=== PATIENT | female | born 1985 | race Caucasian/White ===

== ENCOUNTER 2017-02-07 17:41 | Emergency (ER) | payer BC, OTHER ==
[2017-02-07] MEDS ORDERED: Ondansetron 4 MG/2 ML SDV IVPUSH ONE (17:52)
[2017-02-07] MEDS: Sodium Chloride 0.9% 10 ML Syringe FLUSH PRN ×2 (18:26→18:27)
--- NOTE | 2017-02-07 18:45 | EDM.PDOC ---
ED HPI GENERAL MEDICAL PROBLEM - General Chief Complaint: Abdominal Pain Stated Complaint: ABD PAIN Time Seen by Provider: 02/07/17 17:59 Source of Information: Reports: Patient, Family - History of Present Illness INITIAL COMMENTS - FREE TEXT/NARRATIVE: 31 year old w f , morbid obese, came to the ed a few hours after she ate turkey dinner. No trauma, s/p tubal ligation, S/P cholecystectomy. Pt was nauseated, did not vomit, no F/C, stating her pain is generalized. BP 166/102 pulse 67 temp 36.6 RR 20 Pulse ox 98% on RA. Onset: Today, Sudden Onset Date: 02/07/17 Onset Time: 17:00 Duration: Minutes: Location: Reports: Abdomen, Generalized Quality: Reports: Ache, Dull, Pressure, Stabbing, Throbbing Severity: Moderate Improves with: Reports: None Worsens with: Reports: None Context: Reports: Other (overeating) Associated Symptoms: Reports: Nausea/Vomiting (nausea) Abdominal Pain Score (Numeric/FACES): 10 - Related Data Allergies Allergy/AdvReac Type Severity Reaction Status Date / Time codeine Allergy Mild unknown Verified 02/07/17 18:09 Home Meds: Home Meds NK [No Known Home Meds] 02/07/17 [History] Past Medical History - Past Surgical History GI Surgical History: Reports: Cholecystectomy Female Surgical History: Reports: Tubal Ligation Social & Family History - Tobacco Use Smoking Status *Q: Former Smoker Years of Tobacco use: 5 Used Tobacco, but Quit: Yes Month Tobacco Last Used: quit 3 years ago - Caffeine Use Caffeine Use: Reports: Coffee - Recreational Drug Use Recreational Drug Use: No ED ROS GENERAL - Review of Systems Review Of Systems: See Below Constitutional: Reports: No Symptoms HEENT: Reports: No Symptoms Respiratory: Reports: No Symptoms Cardiovascular: Reports: No Symptoms Endocrine: Reports: No Symptoms GI/Abdominal: Reports: Abdominal Pain : Reports: No Symptoms, Other (s/p tubal ligation) Musculoskeletal: Reports: No Symptoms Skin: Reports: No Symptoms Neurological: Reports: No Symptoms Psychiatric: Reports: No Symptoms Hematologic/Lymphatic: Reports: No Symptoms Immunologic: Reports: No Symptoms ED EXAM, GI/ABD - Physical Exam Exam: See Below Exam Limited By: No Limitations General Appearance: Alert, WD/WN, No Apparent Distress, Moderate Distress, Obese (morbid) Eyes: Bilateral: Normal Appearance Ears: Normal External Exam Nose: Normal Inspection, Normal Mucosa Throat/Mouth: Normal Inspection, Normal Lips Head: Atraumatic, Normocephalic Neck: Normal Inspection, Supple, Non-Tender, Full Range of Motion Respiratory/Chest: No Respiratory Distress, Lungs Clear, Normal Breath Sounds Cardiovascular: Normal Peripheral Pulses, Regular Rate, Rhythm GI/Abdominal Exam: Normal Bowel Sounds, Guarding, Tender (Female) Exam: Deferred Rectal (Female) Exam: Deferred Back Exam: Normal Inspection, Full Range of Motion Extremities: Normal Inspection, Normal Range of Motion, Non-Tender Neurological: Alert, Oriented, CN II-XII Intact, Normal Cognition Psychiatric: Normal Affect, Normal Mood Skin Exam: Warm, Dry, Intact, Normal Color Lymphatic: No Adenopathy Course - Vital Signs Text/Narrative:: 31 year old w f , morbid obese, came to the ed a few hours after she ate turkey dinner. No trauma, s/p tubal ligation, S/P cholecystectomy. Pt was nauseated, did not vomit, no F/C, stating her pain is generalized. BP 166/102 pulse 67 temp 36.6 RR 20 Pulse ox 98% on RA. PE: Morbid obese W F with gen abd. pain, no guarding , no rebound 4 hours after eating a turkey dinner. Labs: CBC Nl. Pls 440 Na 133 K 3.5 GFR > 60 Imaging: ABD flat upright: Nonspecific CT abd/pelvis: NAD as per RAD Impression: S/P tubal ligation, generalized abd. pain, , cause not determined, fatty liver Tx: refused, stating she will take tylenol at home Plan: D/C with instruction Last Recorded V/S: Last Vital Signs Temp 36.5 C 02/07/17 17:59 Pulse 75 02/07/17 17:59 Resp 20 02/07/17 17:59 BP 166/102 H 02/07/17 17:59 Pulse Ox 100 02/07/17 17:59 - Orders/Labs/Meds Orders: Active Orders 24 hr Category Date Time Status Abdomen 2V AP Flat Upright [CR] Stat Exams 02/07/17 17:47 Taken Abdomen Pelvis w Cont [CT] Stat Exams 02/07/17 18:42 Ordered Diatrizoate Elizabeth/Diatrizoate Na [Gastrografin 37%] Med 02/07/17 19:15 Active 30 ml PO . DIRECTED Sodium Chloride 0.9% [Saline Flush] Med 02/07/17 17:47 Active 10 ml FLUSH ASDIRECTED PRN Peripheral IV Insertion Adult [OM.PC] Routine Oth 02/07/17 17:47 Ordered Medication Orders Diatrizoate Meglum/Diatrizoate Sod (Gastrografin 37%) 30 ml PO . DIRECTED [facility] Last Admin: 02/07/17 20:20 Dose: 30 ml Sodium Chloride (Saline Flush) 10 ml FLUSH ASDIRECTED PRN PRN Reason: Keep Vein Open Last Admin: 02/07/17 18:27 Dose: 10 ml Admin: 02/07/17 18:26 Dose: 10 ml Labs: Laboratory Tests 02/07/17 02/07/17 02/07/17 Range/Units 18:00 18:05 18:05 WBC 10.1 (4.5-12.0) X10-3/uL RBC 4.75 (3.23-5.20) x10(6)uL Hgb 14.4 (11.5-15.5) g/dL Hct 41.2 (30.0-51.3) % MCV 86.6 (80-96) fL MCH 30.3 (27.7-33.6) pg MCHC 35.0 (32.2-35.4) g/dL RDW 12.0 (11.5-15.5) % Plt Count 440 H (125-369) X10(3)uL MPV 7.3 L (7.4-10.4) fL Neut % (Auto) 67.0 (46-82) % Lymph % (Auto) 23.7 (13-37) % [place] % (Auto) 6.3 (4-12) % Eos % (Auto) 3 (1.0-5.0) % Baso % (Auto) 0 (0-2) % Neut # (Auto) 6.8 (1.6-8.3) # Lymph # (Auto) 2.4 (0.6-5.0) # [place] # (Auto) 0.6 (0.0-1.3) # Eos # (Auto) 0.3 (0.0-0.8) # Baso # (Auto) 0.0 (0.0-0.2) # Sodium 133 L (135-145) mmol/L Potassium 3.5 (3.5-5.3) mmol/L Chloride 102 (100-110) mmol/L Carbon Dioxide 23 (23-29) mmol/L BUN 10 (5-20) mg/dL Creatinine 0.7 (0.6-1.3) mg/dL Est Cr Clr Drug Dosing 82.88 mL/min Estimated GFR (MDRD) > 60 (>60) BUN/Creatinine Ratio 14.3 (9-20) Glucose 134 H (80-116) mg/dL Calcium 9.0 (8.6-10.2) mg/dL Total Bilirubin 0.3 (0.1-1.3) mg/dL Direct Bilirubin 0.0 L (0.1-0.2) mg/dL AST 29 H (5-27) IU/L ALT 28 H (14-26) IU/L Alkaline Phosphatase 48 L (56-112) IU/L Total Protein 7.6 (6.0-8.0) g/dL Albumin 4.3 (3.5-5.2) g/dL Urine Color Yellow (YELLOW) Urine Appearance Slightly cloudy (CLEAR) Urine pH 9.0 H (5.0-6.5) Ur Specific [place] 1.015 (1.010-1.025) Urine Protein Negative (NEGATIVE) mg/dL Urine Glucose (UA) Normal (NEGATIVE) mg/dL Urine Ketones Negative (NEGATIVE) mg/dL Urine Occult Blood Negative (NEGATIVE) Urine Nitrite Negative (NEGATIVE) Urine Bilirubin Negative (NEGATIVE) Urine Urobilinogen Normal (NEGATIVE) mg/dL Ur Leukocyte Esterase Negative (NEGATIVE) Urine RBC 0-5 (0) Urine WBC 0-5 (0) Ur Squamous Epith Cells Moderate H (NS,R,O) Amorphous Sediment Moderate Urine Bacteria Rare H (NS) Meds: Medications Generic Name Dose Route Start Last Admin Trade Name Freq PRN Reason Stop Dose Admin Diatrizoate Meglum/Diatrizoate Sod 30 ml 02/07/17 19:15 02/07/17 20:20 Gastrografin 37% PO 30 ml . DIRECTED RODRIGO Administration Sodium Chloride 10 ml 02/07/17 17:47 02/07/17 18:27 Saline Flush FLUSH 10 ml ASDIRECTED PRN Administration Keep Vein Open Discontinued Medications Generic Name Dose Route Start Last Admin Trade Name Bia PRN Reason Stop Dose Admin Iopamidol 125 ml 02/07/17 19:11 02/07/17 20:24 Isovue-370 (76%) IV 02/07/17 19:12 125 ml ONETIME ONE Administration Ondansetron HCl 8 mg 02/07/17 17:52 02/07/17 18:26 Zofran IVPUSH 02/07/17 17:53 8 mg ONETIME ONE Administration Departure - Departure Time of Disposition: 20:51 Disposition: Home, Self-Care 01 Condition: Good Clinical Impression: Abdominal pain Qualifiers: Abdominal location: generalized Qualified Code(s): R10.84 - Generalized abdominal pain - Discharge Information Instructions: Abdominal Pain, Adult, [id number] Referrals: Ramon Resendiz MD [Primary Care Provider] - Forms: ED Department Discharge Additional Instructions: Please take maalox, tylenol for pain, please f/u, please come back if your symptoms get worse acutely - My Orders Last 24 Hours: My Active Orders 02/07/17 17:47 Abdomen 2V AP Flat Upright [CR] Stat Sodium Chloride 0.9% [Saline Flush] 10 ml FLUSH ASDIRECTED PRN Peripheral IV Insertion Adult [OM.PC] Routine 02/07/17 18:42 Abdomen Pelvis w Cont [CT] Stat 02/07/17 19:15 Diatrizoate Elizabeth/Diatrizoate Na [Gastrografin 37%] 30 ml PO . DIRECTED - Assessment/Plan Last 24 Hours: My Active Orders 02/07/17 17:47 Abdomen 2V AP Flat Upright [CR] Stat Sodium Chloride 0.9% [Saline Flush] 10 ml FLUSH ASDIRECTED PRN Peripheral IV Insertion Adult [OM.PC] Routine 02/07/17 18:42 Abdomen Pelvis w Cont [CT] Stat 02/07/17 19:15 Diatrizoate Elizabeth/Diatrizoate Na [Gastrografin 37%] 30 ml PO . DIRECTED
[2017-02-07] MEDS ORDERED: Iopamidol 755 MG/ML 150 ML Bottle IV ONE (19:11)
[2017-02-07] MEDS ORDERED: Diatrizoate Meglumine/Diatrizoate Sodium 37% 30 ML Bottle PO SCH (19:15)
--- NOTE | 2017-02-08 11:04 | CR ---
INDICATION: Abdominal pain after turkey dinner in entire upper abdomen. ABDOMEN: Four images of the abdomen in supine and upright projections reveal multiple air fluid levels in the right colon area; however, no significant distention was identified to strongly suggest a mechanically obstructive process. Followup studies may be warranted, as the air fluid levels are indeterminate in etiology - could be related to appendicitis, pancreatitis, or even diverticulitis; however, in this age group, appendicitis would be more likely. Findings should be correlated clinically. No evidence of free air was identified. On the upright view, a minimal dextroconvex slightly rotatory scoliosis of the upper middle lumbar spine was noted. Clips compatible with cholecystectomy are noted. No definite mass lesions, organomegaly, or pathologic calcifications could be identified. IMPRESSION: Air fluid levels in the right colon of questionable etiology. Followup may be warranted. MTDD
== END 2017-02-07 21:15 | disposition home or self-care (01) ==
LOC: FB.ED 17:41
DX: R10.84 Generalized abdominal pain (principal); K76.0 Fatty (change of) liver, not elsewhere classified; Z98.51 Tubal ligation status; Z87.891 Personal history of nicotine dependence; Z90.49 Acquired absence of other specified parts of digestive tract; Z88.5 Allergy status to narcotic agent
CPT/HCPCS: 36415; 74020; 74177; 80048; 80076; 81001; 85025; 99284; A9270; J2405; J7050; Q9967

== ENCOUNTER 2020-02-28 16:38 | Emergency (ER) | payer OTHER ==
--- NOTE | 2020-02-28 17:48 | EDM.PDOC ---
<Rich Weeks - Last Filed: 02/28/20 19:03> ED HPI GENERAL MEDICAL PROBLEM - General Chief Complaint: Abdominal Pain Stated Complaint: LEFT SIDE PAIN Time Seen by Provider: 02/28/20 17:15 Source of Information: Reports: Patient History Limitations: Reports: No Limitations - History of Present Illness INITIAL COMMENTS - FREE TEXT/NARRATIVE: pt c/o sever 12/25 steady sharp pain at left upper side of her abd , radiating to her back and to the groin area X 3 hrs, report nausea with this and nl BMs, denies emesis , fever, chills , otr any other associated sx.. pt had similar pain on Saturday and was seen at clinic and was scheduled for abd CT which she missed, pain then resolved on its own. left abdomen Pain Score (Numeric/FACES): 9 - Related Data Allergies Allergy/AdvReac Type Severity Reaction Status Date / Time codeine Allergy Mild unknown Verified 02/28/20 17:02 Home Meds: Home Meds Ibuprofen 800 mg PO Q8H PRN #30 tablet 02/28/20 [Rx] Losartan [Cozaar] 50 mg PO DAILY 02/28/20 [History] Tamsulosin HCl [Flomax] 0.4 mg PO DAILY #10 cap.er.24h 02/28/20 [Rx] Past Medical History - Past Surgical History GI Surgical History: Reports: Cholecystectomy Female Surgical History: Reports: Tubal Ligation Social & Family History - Caffeine Use Caffeine Use: Reports: Coffee ED ROS GENERAL - Review of Systems Review Of Systems: See Below Constitutional: Reports: No Symptoms. Denies: Fever, Chills HEENT: Reports: No Symptoms Respiratory: Reports: No Symptoms Cardiovascular: Reports: No Symptoms GI/Abdominal: Reports: Abdominal Pain, Nausea. Denies: Black Stool, Bloody Stool, Diarrhea, Vomiting : Reports: No Symptoms Musculoskeletal: Reports: No Symptoms Skin: Reports: No Symptoms Neurological: Reports: No Symptoms ED EXAM, GENERAL - Physical Exam Exam: See Below Exam Limited By: No Limitations General Appearance: Alert, No Apparent Distress Eye Exam: Bilateral Eye: Normal Inspection Nose: Normal Inspection Throat/Mouth: Normal Inspection, Normal Oropharynx Head: Atraumatic, Normocephalic Neck: Normal Inspection, Supple, Non-Tender Respiratory/Chest: No Respiratory Distress, Lungs Clear, Normal Breath Sounds Cardiovascular: Normal Peripheral Pulses, Regular Rate, Rhythm GI/Abdominal: Normal Bowel Sounds, Soft, Non-Tender Extremities: Normal Inspection, Normal Range of Motion, Normal Capillary Refill Neurological: Alert, Oriented, CN II-XII Intact, No Motor/Sensory Deficits Skin Exam: Warm Course - Vital Signs Text/Narrative:: pt care will be handed to Dr. Olvera at time of shift change. labs / CT / morphine and zofran were ordered. Ass/Plan, abd pain...work up in progress. Departure - Departure Disposition: Home, Self-Care 01 Clinical Impression: Nephrolithiasis - Discharge Information Prescriptions: Tamsulosin HCl [Flomax] 0.4 mg PO DAILY #10 cap.er.24h Ibuprofen 800 mg PO Q8H PRN #30 tablet PRN Reason: Pain Instructions: Kidney Stones, [id number] Referrals: Eveline Govea NP [Primary Care Provider] - Forms: ED Department Discharge Additional Instructions: Please read discharge instructions on kidney stone Increase oral fluids Take Ibuprofen and tylenol 1000 mg every 8 hours as needed for pain Follow up with your doctor if your pain persist after 5 days of treatment <Oren Olvera - Last Filed: 02/28/20 20:36> Course - Vital Signs Last Recorded V/S: Last Vital Signs Temp 36.6 C 02/28/20 16:40 Pulse 69 02/28/20 19:11 Resp 16 02/28/20 19:11 BP 181/102 H 02/28/20 19:11 Pulse Ox 100 02/28/20 19:11 - Orders/Labs/Meds Orders: Active Orders 24 hr Category Date Time Status Abdomen 2V AP Flat Upright [CR] Stat Exams 02/28/20 17:50 Stop Req Abdomen Pelvis wo Cont [CT] Stat Exams 02/28/20 19:11 Taken Sodium Chloride 0.9% [Normal Saline] 1,000 ml Med 02/28/20 18:00 Active IV ASDIRECTED Medication Orders Sodium Chloride (Normal Saline) 1,000 mls @ 999 mls/hr IV ASDIRECTED RODRIGO Last Admin: 02/28/20 17:58 Dose: 999 mls/hr Documented by: MAXWELL Labs: Laboratory Tests 02/28/20 02/28/20 02/28/20 Range/Units 18:10 18:10 18:10 WBC 13.9 H (3.0-10.3) x10-3/uL RBC 4.88 (3.60-5.20) x10(6)uL Hgb 14.3 (11.4-15.5) g/dL Hct 42.6 (34.2-48.2) % MCV 87.3 (76.7-100.5) fL MCH 29.2 (23.9-33.9) pg MCHC 33.5 (31.9-34.8) g/dL RDW 12.6 (12.3-16.5) % Plt Count 385 (151-488) x10(3)uL MPV 7.5 (7.1-12.4) fL Neut % (Auto) 72.5 (30.8-76.2) % Lymph % (Auto) 20.5 (18.4-52.1) % [place] % (Auto) 4.9 (4.4-15.7) % Eos % (Auto) 1.5 (0.6-8.1) % Baso % (Auto) 0.6 (0.2-1.5) % Neut # (Auto) 10.1 H (1.5-6.3) x10-3/uL Lymph # (Auto) 2.8 (1.0-4.4) x10-3/uL [place] # (Auto) 0.7 (0.3-1.0) x10-3/uL Eos # (Auto) 0.2 (0.0-0.8) x10-3/uL Baso # (Auto) 0.1 (0.0-0.1) x10-3/uL Sodium 140 (135-145) mmol/L Potassium 3.8 (3.5-5.3) mmol/L Chloride 102 (100-110) mmol/L Carbon Dioxide 25 (21-32) mmol/L BUN 15 (7-18) mg/dL Creatinine 1.0 (0.55-1.02) mg/dL Est Cr Clr Drug Dosing 59.25 mL/min Estimated GFR (MDRD) > 60 (>60) BUN/Creatinine Ratio 15.0 (9-20) Glucose 95 (80-116) mg/dL Calcium 8.8 (8.6-10.2) mg/dL Total Bilirubin 0.2 (0.1-1.3) mg/dL AST 22 (5-25) IU/L ALT 29 (12-36) U/L Alkaline Phosphatase 49 L (56-112) IU/L Total Protein 7.5 (6.0-8.0) g/dL Albumin 4.0 (3.5-5.2) g/dL Globulin 3.5 g/dL Albumin/Globulin Ratio 1.1 Lipase 96 (73-393) U/L Urine Color (YELLOW) Urine Appearance (CLEAR) Urine pH (5.0-6.5) Ur Specific [place] (1.010-1.025) Urine Protein (NEGATIVE) mg/dL Urine Glucose (UA) (NORMAL) mg/dL Urine Ketones (NEGATIVE) mg/dL Urine Occult Blood (NEGATIVE) Urine Nitrite (NEGATIVE) Urine Bilirubin (NEGATIVE) Urine Urobilinogen (NEGATIVE) mg/dL Ur Leukocyte Esterase (NEGATIVE) Urine RBC (0-5) Urine WBC (0-5) Ur Squamous Epith Cells (NS,R,O) Urine Bacteria (NS) 02/28/20 Range/Units 18:15 WBC (3.0-10.3) x10-3/uL RBC (3.60-5.20) x10(6)uL Hgb (11.4-15.5) g/dL Hct (34.2-48.2) % MCV (76.7-100.5) fL MCH (23.9-33.9) pg MCHC (31.9-34.8) g/dL RDW (12.3-16.5) % Plt Count (151-488) x10(3)uL MPV (7.1-12.4) fL Neut % (Auto) (30.8-76.2) % Lymph % (Auto) (18.4-52.1) % [place] % (Auto) (4.4-15.7) % Eos % (Auto) (0.6-8.1) % Baso % (Auto) (0.2-1.5) % Neut # (Auto) (1.5-6.3) x10-3/uL Lymph # (Auto) (1.0-4.4) x10-3/uL [place] # (Auto) (0.3-1.0) x10-3/uL Eos # (Auto) (0.0-0.8) x10-3/uL Baso # (Auto) (0.0-0.1) x10-3/uL Sodium (135-145) mmol/L Potassium (3.5-5.3) mmol/L Chloride (100-110) mmol/L Carbon Dioxide (21-32) mmol/L BUN (7-18) mg/dL Creatinine (0.55-1.02) mg/dL Est Cr Clr Drug Dosing mL/min Estimated GFR (MDRD) (>60) BUN/Creatinine Ratio (9-20) Glucose (80-116) mg/dL Calcium (8.6-10.2) mg/dL Total Bilirubin (0.1-1.3) mg/dL AST (5-25) IU/L ALT (12-36) U/L Alkaline Phosphatase (56-112) IU/L Total Protein (6.0-8.0) g/dL Albumin (3.5-5.2) g/dL Globulin g/dL Albumin/Globulin Ratio Lipase (73-393) U/L Urine Color Yellow (YELLOW) Urine Appearance Clear (CLEAR) Urine pH 7.0 H (5.0-6.5) Ur Specific [place] 1.010 (1.010-1.025) Urine Protein Negative (NEGATIVE) mg/dL Urine Glucose (UA) Normal (NORMAL) mg/dL Urine Ketones Negative (NEGATIVE) mg/dL Urine Occult Blood Moderate H (NEGATIVE) Urine Nitrite Negative (NEGATIVE) Urine Bilirubin Negative (NEGATIVE) Urine Urobilinogen Normal (NEGATIVE) mg/dL Ur Leukocyte Esterase Negative (NEGATIVE) Urine RBC 0-5 (0-5) Urine WBC 0-5 (0-5) Ur Squamous Epith Cells Few H (NS,R,O) Urine Bacteria Few H (NS) Meds: Medications Generic Name Dose Route Start Last Admin Trade Name Freq PRN Reason Stop Dose Admin Sodium Chloride 1,000 mls @ 999 mls/hr 02/28/20 18:00 02/28/20 17:58 Normal Saline IV 999 mls/hr ASDIRECTED RODRIGO Administration Discontinued Medications Generic Name Dose Route Start Last Admin Trade Name Freq PRN Reason Stop Dose Admin Ketorolac Tromethamine 30 mg 02/28/20 20:19 Toradol IVPUSH 02/28/20 20:20 ONETIME ONE Morphine Sulfate 4 mg 02/28/20 17:50 02/28/20 18:14 Morphine IVPUSH 02/28/20 17:51 4 mg ONETIME ONE Administration Ondansetron HCl 4 mg 02/28/20 17:50 02/28/20 17:59 Zofran IVPUSH 02/28/20 17:51 4 mg ONETIME ONE Administration Tamsulosin HCl 0.4 mg 02/28/20 20:19 Flomax PO 02/28/20 20:20 ONETIME ONE Departure - Departure Time of Disposition: 20:30 Condition: Good Sepsis Event Note (ED) - Focused Exam Vital Signs: Vital Signs Temp Pulse Resp BP Pulse Ox 02/28/20 19:11 69 16 181/102 H 100 02/28/20 16:40 36.6 C 67 18 168/86 H 99 - My Orders Last 24 Hours: My Active Orders 02/28/20 19:11 Abdomen Pelvis wo Cont [CT] Stat - Assessment/Plan Last 24 Hours: My Active Orders 02/28/20 19:11 Abdomen Pelvis wo Cont [CT] Stat
[2020-02-28] MEDS ORDERED: Ondansetron 4 MG/2 ML SDV IVPUSH ONE (17:50)
[2020-02-28] MEDS ORDERED: Morphine 4 MG/ML VIAL IVPUSH ONE (17:50)
[2020-02-28] MEDS ORDERED: Sodium Chloride 0.9% 1,000 ML IV SCH (18:00)
[2020-02-28] MEDS ORDERED: Tamsulosin 0.4 MG Cap.ER PO ONE (20:19)
[2020-02-28] MEDS ORDERED: Ketorolac 30 MG/ML SDV IVPUSH ONE (20:19)
== END 2020-02-28 21:15 | disposition home or self-care (01) ==
LOC: FB.ED 16:38
DX: N20.2 Calculus of kidney with calculus of ureter (principal); Z88.5 Allergy status to narcotic agent; Z79.899 Other long term (current) drug therapy
CPT/HCPCS: 36415; 74176; 80053; 81001; 83690; 85025; 96374; 96375; 99284; A9270; J1885; J2270; J2405; J7030